=== PATIENT | male | born 1965 | race Caucasian/White ===

== ENCOUNTER 2020-10-21 09:14 | Emergency (ER) | payer OTHER, SELFPAY ==
[2020-10-21 09:18] VITALS: BP 154/91; PULSE 53; RESP 16; TEMP 36.6; O2SAT 98; BMI 23.3
[2020-10-21 09:28] LABS: Bacteria Urine None Seen; WBC Urine None Seen (0-5/HPF)
[2020-10-21 09:39] LABS: Add Manual Diff / Slide Review NO; Basophils Absolute Auto 0 /uL (0-100); Basophils Percent Auto 0.7 % (0-2); Eosinophils Absolute Auto 200 /uL (0-450); Eosinophils Percent Auto 3.5 % (2-4); Hematocrit 44.1 % (41-53); Hemoglobin 15.2 g/dL (13.5-17.5); Lymphocytes Absolute Auto 2000 /uL (1100-4500); Lymphocytes Percent Auto 33.5 % (25-40); Mean Corpuscular HGB Conc 34.5 % (30-36); Monocytes Absolute Auto 600 /uL (0-900); Monocytes Percent Auto 9.4 % (3-14); Neutrophils Absolute Auto 3100 /uL (1500-7000); Neutrophils Percent Auto 52.9 % (50-75); Platelet Count 184 X10^3/uL (150-400); Red Blood Cell Count 5.26 X10^6/uL (4.5-5.9); Red Cell Distribution Width 13.7 % (11.6-14.8); White Blood Cell Count 5.9 X10^3/uL (4.5-11.0)
[2020-10-21 09:55] LABS: Culture Indicated Urine Cult Not Indicated; RBC Urine 10-30/HPF (0-5/HPF)
[2020-10-21 09:56] LABS: Alanine Aminotransferase 20 IU/L (<50); Albumin 4.6 g/dL (3.5-5.0); Albumin Globulin Ratio 1.6 (1.0-2.8); Alkaline Phosphatase 44 U/L (38-126); Aspartate Aminotransferase 21 IU/L (17-59); Bilirubin Total 0.7 mg/dL (0.2-1.3); Blood Urea Nitrogen 17 mg/dL (9-20); Calcium 9.2 mg/dL (8.4-10.2); Carbon Dioxide 27 mmol/L (22-32); Chloride 103 mmol/L (98-107); Estimated Glomerular Filt Rate > 60.0 mL/min (>60); Globulin 2.8 g/dL (1.7-4.1); Glucose 124 mg/dL (70-100); HEMOLYSIS < 15 (0-50); Lipase 63 U/L (23-300); Sodium 137 mmol/L (137-145); Total Protein 7.4 g/dL (6.3-8.2)
--- NOTE | 2020-10-21 09:58 | ED_ITS ---
HPI - General Adult General Chief complaint: Urogenital-Male Stated complaint: thinks he has a kidney stone Time Seen by Provider: 10/21/20 09:20 Source: patient Mode of arrival: Ambulatory Limitations: no limitations History of Present Illness HPI narrative: 55-year-old male who has never had a kidney stone in the past here for evaluation of left-sided flank pain. He states that approximately 1.5 hours prior to arrival here in the emergency department as sudden onset. Not worse with urination. Has not had a bowel movement since symptoms started but did have a normal bowel movement this morning. No rashes. Has not better with palpation or movement. No testicular pain. Has had some nausea but no vomiti ng. Related Data Previous Rx's Medication Instructions Recorded hydrocodone-acetaminophen [[place]] 1 tab PO Q4-6H PRN #10 tab 10/21/20 ondansetron 4 mg PO Q6H PRN #14 tab 10/21/20 Allergies Allergy/AdvReac Type Severity Reaction Status Date / Time No Known Drug Allergies Allergy Verified 10/21/20 09:23 Review of Systems Constitutional Constitutional: Denies fever(s) and Denies headache(s) ENT Ears, Nose, Mouth, and Throat: Denies headache(s) Cardiovascular Cardiovascular: Denies chest pain and Denies dyspnea Respiratory Respiratory: Denies dyspnea Gastrointestinal Gastrointestinal: Denies abdominal pain Musculoskeletal Comments: Left-sided flank pain Integumentary/Breasts Skin/Breast: Denies lesions and Denies rash Neurologic Neurologic: Denies behavioral changes and Denies headache(s) Psychiatric Psychiatric: Denies behavioral changes Hematologic/Lymphatic On Anticoagulants: No Allergic/Immunologic Allergic/Immunologic: Denies urticaria Patient History Medical History Hypothyroid Social History Smoking Status: Unknown if ever smoked Smoking Status: Unknown if ever smoked alcohol intake frequency: holidays/special occasions only Substance Use Type: does not use Exam Initial Vital Signs Initial Vital Signs: Vital Signs Temperature 97.8 F 10/21/20 09:18 Pulse Rate 53 L 10/21/20 09:18 Respiratory Rate 16 10/21/20 09:18 Blood Pressure 154/91 H 10/21/20 09:18 Pulse Oximetry 98 10/21/20 09:18 Const General: cooperative and comfortable Limitations: mental status not altered HENMT Head: normal to inspection and normocephalic Resp Effort & Inspection: normal respiratory effort Cardio Rate: regular rate GI Inspection: non-distended Back/Spine/Pelvis Back: No CVA tenderness Skin Lesions: no lesions Rashes: no rashes Neuro General: patient alert and patient awake Cognition: normal cognition Speech: speech normal Extrem General: capillary refill normal Psych Appearance: grossly normal and well kempt Course Orders Ordered: ED Orders 10/21/20 09:19 Urine Microscopic Stat 10/21/20 09:30 Complete Blood Count AUTO DIFF Stat Comprehensive Metabolic Panel Stat Lipase Stat 10/21/20 10:00 CT kidney ureter bladder (KUB) Stat Discontinued Medications Lidocaine HCl 5.9 ml/ Sodium (Chloride) 55.9 mls @ 335.4 mls/hr IV NOW ONE Stop: 10/21/20 09:53 Last Infusion: 10/21/20 10:18 Dose: 0 mls/hr Documented by: Admin: 10/21/20 10:06 Dose: 335.4 mls/hr Documented by: CHELSEA Ketorolac Tromethamine (Ketorolac 60 Mg/2 Ml Vial) 30 mg IV NOW ONE Stop: 10/21/20 09:53 Last Admin: 10/21/20 10:06 Dose: 30 mg Documented by: CHELSEA Ondansetron HCl (Ondansetron 4 Mg/2 Ml Inj) 4 mg IV NOW ONE Stop: 10/21/20 09:53 Last Admin: 10/21/20 10:06 Dose: 4 mg Documented by: CHELSEA Vital Signs Vital signs: Vital Signs - 8 hr 10/21/20 09:18 Temperature 97.8 F Pulse Rate 53 L Respiratory Rate 16 Blood Pressure 154/91 H Pulse Oximetry 98 Medical Decision Making Lab Data Lab results reviewed: Yes I reviewed the patient's lab results. Result diagrams: 10/21/20 09:30 10/21/20 09:30 Labs: Lab Results 10/21/20 10/21/20 10/21/20 Range/Units 09:19 09:30 09:30 WBC 5.9 (4.5-11.0) X10^3/uL RBC 5.26 (4.5-5.9) X10^6/uL Hgb 15.2 (13.5-17.5) g/dL Hct 44.1 (41-53) % MCV 84.0 (80-100) fL MCH 29.0 (26-34) PG MCHC 34.5 (30-36) % RDW 13.7 (11.6-14.8) % Plt Count 184 (150-400) X10^3/uL Neut % (Auto) 52.9 (50-75) % Lymph % (Auto) 33.5 (25-40) % [place] % (Auto) 9.4 (3-14) % Eos % (Auto) 3.5 (2-4) % Baso % (Auto) 0.7 (0-2) % Neut # (Auto) 3100 (2790-2534) /uL Lymph # (Auto) 2000 (9502-1959) /uL [place] # (Auto) 600 (0-900) /uL Eos # (Auto) 200 (0-450) /uL Baso # (Auto) 0 (0-100) /uL Sodium 137 (137-145) mmol/L Potassium 4.0 (3.4-5.1) mmol/L Chloride 103 (98-107) mmol/L Carbon Dioxide 27 (22-32) mmol/L BUN 17 (9-20) mg/dL Creatinine 1.06 (0.66-1.25) mg/dL Estimated GFR > 60.0 (>60) mL/min BUN/Creatinine Ratio 16.0 (6-22) Glucose 124 H (70-100) mg/dL Calcium 9.2 (8.4-10.2) mg/dL Total Bilirubin 0.7 (0.2-1.3) mg/dL AST 21 (17-59) IU/L ALT 20 (<50) IU/L Alkaline Phosphatase 44 (38-126) U/L Total Protein 7.4 (6.3-8.2) g/dL Albumin 4.6 (3.5-5.0) g/dL Globulin 2.8 (1.7-4.1) g/dL Albumin/Globulin Ratio 1.6 (1.0-2.8) Lipase 63 (23-300) U/L Urine RBC 10-30/hpf H (0-5/HPF) Urine WBC None seen (0-5/HPF) Urine Bacteria None seen (None) Ur Culture Indicated? Cult not indicated Urine Dip Bedside Urine Glucose Negative Bedside Urine Bilirubin - Negative Bedside Urine Ketone - Negative Urine Specific [place] 1.025 Bedside Urine Occult Blood ++ Bedside Urine pH 6.0 Bedside Urine Protein +/- 15 Bedside Urine Urobilinogen - Negative Bedside Urine Nitrite - Negative Bedside Urine Leukocytes - Negative Esterase Point of care testing: Urine Dip Bedside Urine Glucose Negative Bedside Urine Bilirubin - Negative Bedside Urine Ketone - Negative Urine Specific [place] 1.025 Bedside Urine Occult Blood ++ Bedside Urine pH 6.0 Bedside Urine Protein +/- 15 Bedside Urine Urobilinogen - Negative Bedside Urine Nitrite - Negative Bedside Urine Leukocytes - Negative Esterase Imaging Data CT scan - abdomen/pelvis: Radiologist's Impression: [address] [id number] Scan ReportSigned Patient: Javi Stern MMR#: [id number]: 1965Acct:[id number]/Sex: 55 / MDate of Service: 10/21/20Loc: EDAccession Number: [id number] Procedure: CT kidney ureter bladder (KUB) Ordering Provider: Toy Paiz D.O. PROCEDURE: CT KIDNEY URETER BLADDER (KUB) INDICATIONS: Tendon on set left flank pain. Concern for left-sided stone. TECHNIQUE: Noncontrast 5 mm thick sections acquired from the diaphragms to the symphysis. 5 mm thick coronal and sagittal reformats were then performed. For radiation dose reduction, the following was used: automated exposure control, adjustment of mA and/or kV according to patient size. COMPARISON: None. FINDINGS: Image quality: Excellent. Lung bases: There is partially visualized scarring and bronchiectasis within the right lower lobe. Heart size is normal. A small hiatal hernia is present. Urinary system: There is a small obstructing stone in the distal left ureter measuring up to 3 mm with associated mild left hydroureteronephrosis as well as perinephric and periureteral fat stranding. There are 2 additional small nonobstructing left renal stones measuring approximately 2 mm. No right renal stones are right hydronephr osis. Right ureter is nondistended. The urinary bladder is partially distended. No calcified bladder stones. Other solid organs: Noncontrast evaluation of the liver demonstrates no focal hepatic lesions. Gallbladder appears within normal limits without calcified gallstones. Pancreas is normal in contours without peripancreatic fat stranding or fluid collections. Spleen is normal in size. No adrenal nodules. Peritoneum and bowel: Unenhanced bowel loops demonstrate normal wall thickness and caliber. The appendix is normal in appearance. Colonic diverticulosis is present without acute diverticulitis. No free fluid or air. Nodes and vessels: No retroperitoneal or mesenteric adenopathy by size criteria. Aorta and inferior vena cava are normal in caliber. Abdominal wall: No ventral hernias. Pelvis: No free pelvic fluid. There are small bilateral inguinal hernias with herniation of a short short segment of small bowel on the right. There is also partial herniation of a small bowel loop into the base of the left hernia. No associated bowel obstruction or evidence of bowel strangulation. No inguinal adenopathy. Bones: No suspicious bony lesions. No vertebral body compression fractures. IMPRESSION: 1. Small obstructing 3 mm distal left ureteral stone with mild left hydroureteronephrosis. 2. Additional 2 mm obstructing stones within the left kidney. 3. No right hydronephrosis. 4. Colonic diverticulosis without acute diverticulitis. 5. Bilateral inguinal hernias with herniation of small bowel as described. No evidence of bowel obstruction or strangulation. Dictated by: Dillon Nicole M.D. on 10/21/2020 at 9:11 Approved by: Dillon Nicole M.D. on 10/21/2020 at 9:26 MDM Narrative Medical decision making narrative: Kidney function is unremarkable, urinalysis does not show any signs of an infection. Patient reports a complete resolution of symptoms after the IV lidocaine in the Toradol. Has a 3 mm stone on the left. I suspect that this is the cause of his symptoms. Will discharge home with symptom treatment. We did discuss return precautions. He expressed understanding and agreement. Discharge Plan Departure Patient Disposition: Home Clinical Impression: Renal colic on left side Instructions: DI for Kidney Stones Activity Restrictions/Additional Instructions: You do have a 3 mm stone on the left that is working its way out and 2 additional stones in the left kidney. Prescription for medications was electronically transmitted to [facility]. Also recommend you contact the health resource is coordinator here at the hospital at [phone]. Return to the emergency department for any new or worsening symptoms like we discussed Prescriptions: New ondansetron 4 mg tablet,disintegrating 4 mg PO Q6H PRN (Reason: nausea and vomiting) Qty: 14 RF: 0 hydrocodone-acetaminophen [[place]] 5-325 mg tablet 1 tab PO Q4-6H PRN (Reason: pain) Qty: 10 RF: 0
[2020-10-21] MEDS: KETOROLAC 60 MG/2 ML VIAL 30 MG IV (10:06)
[2020-10-21] MEDS: LIDOCAINE 2% 5.9 ML in SODIUM CHLORIDE 0.9% 50 ML 335.4 ML IV (10:06)
[2020-10-21] MEDS: ONDANSETRON 4 MG/2 ML INJ IV (10:06)
[2020-10-21 11:09] VITALS: BP 154/91; PULSE 77; O2SAT 98
== END 2020-10-21 11:10 | disposition home or self-care (01) ==
PROVIDERS: Emergency Provider Emergency Medicine
DX: N23 Unspecified renal colic (principal); R11.0 Nausea; Z87.442 Personal history of urinary calculi
CPT/HCPCS: 36415; 74176; 80053; 81003; 81015; 83690; 85025; 96374; 96375; 99284; J1885; J2405

== ENCOUNTER 2023-01-18 22:25 | Emergency (ER) | payer OTHER, SELFPAY ==
[2023-01-18 22:32] VITALS: BP 180/82; PULSE 55; RESP 18; TEMP 36.6; O2SAT 99; BMI 23.7
--- NOTE | 2023-01-18 22:37 | DI.RAD.S_ITS ---
PROCEDURE: XR CHEST 1V INDICATIONS: chest pain TECHNIQUE: One view of the chest was acquired. COMPARISON: None. FINDINGS: Surgical changes and devices: None. Lungs and pleura: Lungs are clear. No pleural effusions or pneumothorax. Mediastinum: Mediastinal contours appear normal. Heart size is normal. Bones and chest wall: No suspicious bony lesions. Overlying soft tissues appear unremarkable. IMPRESSION: 1. No acute cardiopulmonary disease. Dictated by: Dillon Nicole M.D. on 01/19/2023 at 0:49 Approved by: Dillon Nicole M.D. on 01/19/2023 at 0:49
[2023-01-18 23:06] LABS: Add Manual Diff / Slide Review NO; Basophils Absolute Auto 100 /uL (0-100); Basophils Percent Auto 1.3 % (0-2); Eosinophils Absolute Auto 0 /uL (0-450); Eosinophils Percent Auto 0.4 % (2-4); Hematocrit 42.5 % (41-53); Lymphocytes Absolute Auto 700 /uL (1100-4500); Lymphocytes Percent Auto 6.9 % (25-40); Mean Corpuscular HGB Conc 35.2 % (30-36); Mean Corpuscular Hemoglobin 30.3 PG (26-34); Monocytes Absolute Auto 300 /uL (0-900); Monocytes Percent Auto 3.4 % (3-14); Neutrophils Absolute Auto 8800 /uL (1500-7000); Platelet Count 184 X10^3/uL (150-400); Red Blood Cell Count 4.94 X10^6/uL (4.5-5.9)
[2023-01-18 23:09] LABS: INR 1.2 (0.9-1.3); Prothrombin Time 13.7 SECONDS (10.1-12.7)
[2023-01-18 23:12] LABS: PTT Partial Thromboplastin Tim 32 SECONDS (26-36)
[2023-01-18 23:13] LABS: Alanine Aminotransferase 21 IU/L (<50); Albumin 4.5 g/dL (3.5-5.0); Albumin Globulin Ratio 1.6 (1.0-2.8); Alkaline Phosphatase 41 U/L (38-126); Aspartate Aminotransferase 22 IU/L (17-59); BUN Creatinine Ratio 15.7 (6-22); Bilirubin Total 0.8 mg/dL (0.2-1.3); Blood Urea Nitrogen 17 mg/dL (9-20); Calcium 9.3 mg/dL (8.4-10.2); Carbon Dioxide 30 mmol/L (22-32); Chloride 100 mmol/L (98-107); Creatine Kinase 103 U/L (55-170); Estimated Glomerular Filt Rate > 60 mL/min (>60); Globulin 2.9 g/dL (1.7-4.1); Glucose 141 mg/dL (70-100); HEMOLYSIS < 15 (0-50); Lipase 44 U/L (23-300); Sodium 135 mmol/L (137-145); Total Protein 7.4 g/dL (6.3-8.2)
[2023-01-18 23:25] LABS: Troponin I < 0.012 ng/mL (0.01-0.034)
[2023-01-18 23:31] VITALS: BP 180/79; PULSE 66; O2SAT 95
--- NOTE | 2023-01-18 23:34 | ED_ITS ---
HPI - Chest Pain General Chief Complaint: Chest Pain Stated Complaint: Abdominal pain, vomited x 1 Time Seen by Provider: 01/18/23 23:23 Source: patient Mode of arrival: Ambulatory Limitations: no limitations History of Present Illness HPI narrative: Patient is a 57-year-old male here for evaluation of epigastric abdominal pain. He states that it started earlier this afternoon. He did vomit 1 time which he thought maybe help the symptoms a small amount but it is starting to return. He denies any diarrhea. He has had a bowel movement since the onset of his discomfort in did not change any of his pain. He is also urinated without any change in the pain as well. Denies any fevers. Sent an hernia repair but no other abdominal surgeries. Related Data Home Medications Medication Instructions Recorded Confirmed acetaminophen 325 mg tablet 325 mg PO ONCE PRN fever or pain 10/29/20 05/08/22 (Tylenol) cetirizine 10 mg tablet (Zyrtec) 10 mg PO DAILY PRN 02/10/21 05/08/22 Previous Rx's Medication Instructions Recorded levothyroxine 125 mcg tablet 125 mcg PO DAILY #90 tabs 02/06/22 Allergies Allergy/AdvReac Type Severity Reaction Status Date / Time No Known Drug Allergies Allergy Verified 05/08/22 18:05 Review of Systems Constitutional Constitutional: Reports system reviewed and no additional complaints, except as documented Respiratory Respiratory: Reports system reviewed and no additional complaints, except as documented Gastrointestinal Gastrointestinal: Reports system reviewed and no additional complaints, except as documented Genitourinary Genitourinary: Reports system reviewed and no additional complaints, except as documented Integumentary/Breasts Skin/Breast: Reports system reviewed and no additional complaints, except as documented Hematologic/Lymphatic On Anticoagulants: No Patient History Medical History Acquired hypothyroidism (~2004) Allergies (~1977) Chicken pox (~1966) Essential hypertension Leandro's thyroiditis History of adenomatous polyp of colon History of nephrolithiasis Skin cancer (~2013) Surgical History (Updated 02/03/21 @ 20:33 by Janelle Dash) Anesthesia History of colonoscopy (~2017) Status post herniorrhaphy (~1989) Status post vasectomy (~2000) Family History (Updated 02/03/21 @ 20:36 by Janelle Dash) Mother Hypertension Father Hypertension Hyperlipidemia TIA (transient ischemic attack) Grandfather History of heart disease Grandmother Kidney failure Grandfather Suicide Grandmother Arteriosclerosis Social History Smoking Status: Never smoker Smoking Status: Never smoker alcohol intake frequency: holidays/special occasions only Substance Use Type: does not use Exam Initial Vital Signs Initial Vital Signs: Vital Signs Temperature 97.9 F 01/18/23 22:32 Pulse Rate 55 L 01/18/23 22:32 Respiratory Rate 18 01/18/23 22:32 Blood Pressure 180/82 H 01/18/23 22:32 Pulse Oximetry 99 01/18/23 22:32 Oxygen Delivery Method Room Air 01/18/23 22:32 Const General: cooperative, comfortable and No ill appearing HENMT Head: normal to inspection and normocephalic Resp Effort & Inspection: normal respiratory effort Auscultation: clear to auscultation bilaterally Cardio Rate: regular rate Rhythm: regular rhythm GI Inspection: normal to inspection and non-distended Palpation: soft and No tender Skin General: no rashes or lesions noted Neuro General: patient alert, patient awake and moves all extremities Extrem General: capillary refill normal Course Orders Ordered: ED Orders 01/18/23 22:37 XR chest 1V Stat EKG-12 Lead Stat 01/18/23 22:53 Complete Blood Count AUTO DIFF Stat Comprehensive Metabolic Panel Stat Lipase Stat Magnesium Stat PTT Partial Thromboplastin Chad Stat Prothrombin Time INR Stat Troponin & CK Cardiac Panel Stat Discontinued Medications Al Hydrox/Mg Hydrox/Simethicone (Mag Hydrox/Alum/Simeth 30 Ml Udc) 30 ml PO NOW ONE Stop: 01/18/23 23:52 Last Admin: 01/19/23 00:00 Dose: 30 ml Documented By: TAD Aspirin (Aspirin 81 Mg Chew Tab) 324 mg PO NOW ONE Stop: 01/18/23 22:38 Last Admin: 01/18/23 23:24 Dose: Not Given Documented By: BREANN Pantoprazole Sodium (Pantoprazole 40 Mg Vial) 40 mg IV NOW ONE Stop: 01/18/23 23:52 Last Admin: 01/19/23 00:00 Dose: 40 mg Documented By: TAD Vital Signs Vital signs: Vital Signs - 8 hr 01/18/23 22:32 01/18/23 23:31 01/18/23 23:31 Temperature 97.9 F Pulse Rate 55 L 66 Respiratory Rate 18 Blood Pressure 180/82 H 180/79 H Pulse Oximetry 99 95 Oxygen Delivery Method Room Air Room Air MDM - Chest Pain Lab Data Attestation: I reviewed the patient's lab results. 01/18/23 22:53 01/18/23 22:53 Labs: Lab Results 01/18/23 01/18/23 01/18/23 Range/Units 22:53 22:53 22:53 WBC 10.0 (4.5-11.0) X10^3/uL RBC 4.94 (4.5-5.9) X10^6/uL Hgb 15.0 (13.5-17.5) g/dL Hct 42.5 (41-53) % MCV 86.0 (80-100) fL MCH 30.3 (26-34) PG MCHC 35.2 (30-36) % RDW 13.0 (11.6-14.8) % Plt Count 184 (150-400) X10^3/uL Neut % (Auto) 88.0 H (50-75) % Lymph % (Auto) 6.9 L (25-40) % [place] % (Auto) 3.4 (3-14) % Eos % (Auto) 0.4 L (2-4) % Baso % (Auto) 1.3 (0-2) % Neut # (Auto) 8800 H (3441-4118) /uL Lymph # (Auto) 700 L (8009-3498) /uL [place] # (Auto) 300 (0-900) /uL Eos # (Auto) 0 (0-450) /uL Baso # (Auto) 100 (0-100) /uL PT 13.7 H (10.1-12.7) SECONDS INR 1.2 (0.9-1.3) APTT 32 (26-36) SECONDS Sodium 135 L (137-145) mmol/L Potassium 4.0 (3.4-5.1) mmol/L Chloride 100 (98-107) mmol/L Carbon Dioxide 30 (22-32) mmol/L BUN 17 (9-20) mg/dL Creatinine 1.08 (0.66-1.25) mg/dL Estimated GFR > 60 (>60) mL/min BUN/Creatinine Ratio 15.7 (6-22) Glucose 141 H (70-100) mg/dL Calcium 9.3 (8.4-10.2) mg/dL Magnesium 2.0 (1.6-2.3) mg/dL Total Bilirubin 0.8 (0.2-1.3) mg/dL AST 22 (17-59) IU/L ALT 21 (<50) IU/L Alkaline Phosphatase 41 (38-126) U/L Total Creatine Kinase 103 (55-170) U/L CK-MB (CK-2) TNP CK-MB (CK-2) Rel Index TNP Troponin I < 0.012 (0.01-0.034) ng/mL Total Protein 7.4 (6.3-8.2) g/dL Albumin 4.5 (3.5-5.0) g/dL Globulin 2.9 (1.7-4.1) g/dL Albumin/Globulin Ratio 1.6 (1.0-2.8) Lipase 44 (23-300) U/L Imaging Data Chest x-ray: My Impression: No acute abnormalities noted ECG Data Attestation: I personally reviewed and interpreted this ECG as follows: Interpretation: Sinus bradycardia Ventricular rate of 49 Normal axis Normal QRS Normal QTC No ST T wave changes MDM Narrative Medical decision making narrative: Patient's lab work here in the ER is unremarkable. Troponin is negative EKG is unremarkable. After time and medications he states that his abdominal pain is actually improving. He is not having anymore vomiting. Had a discussion with him regarding his symptoms. We discussed potentially obtaining further imaging studies to include a CT scan for further evaluation versus discharge home and return to the emergency department if his symptoms worsen. Discharge Plan Departure Patient Disposition: Home Clinical Impression: Abdominal pain Instructions: DI for Abdominal Pain-Adult Activity Restrictions/Additional Instructions: I do recommend that you continue to take all of your medications as directed. Contact your primary doctor for a follow-up. Return to the emergency department for new or worsening symptoms. Prescriptions: No Action cetirizine [Zyrtec] 10 mg tablet 10 mg PO DAILY PRN levothyroxine 125 mcg tablet 125 mcg PO DAILY Qty: 90 3RF acetaminophen [Tylenol] 325 mg tablet 325 mg PO ONCE PRN (Reason: fever or pain) Referrals: Flex Trevino MD [Primary Care Provider] - Stand Alone Forms: Patient Portal/API
[2023-01-19] VITALS: BP 168/81; PULSE 46; O2SAT 99
[2023-01-19] MEDS: PANTOPRAZOLE 40 MG VIAL IV
[2023-01-19] MEDS: MAG HYDROX/ALUM/SIMETH 30 ML UDC PO
[2023-01-19 00:30] VITALS: BP 166/78; PULSE 41; RESP 16; O2SAT 98
[2023-01-19 00:56] VITALS: BP 171/76; PULSE 44; RESP 22; O2SAT 98
== END 2023-01-19 01:00 | disposition home or self-care (01) ==
PROVIDERS: Emergency Provider Emergency Medicine; PCP Internal Medicine
DX: R10.13 Epigastric pain (principal); R00.1 Bradycardia, unspecified
CPT/HCPCS: 36415; 71045; 80053; 82550; 82553; 83690; 83735; 84484; 85025; 85610; 85730; 93005; 93010; 96374; 99284; C9113

== ENCOUNTER 2023-09-13 09:17 | Day surgery (SDC) | payer OTHER, SELFPAY ==
[2023-09-13] VITALS (7 sets, daily range): BP systolic 93–163; BP diastolic 64–92; PULSE 53–76; RESP 13–16; TEMP 36.1–36.2; O2SAT 94–98
--- NOTE | 2023-09-13 | PATH_ITS ---
[facility] Accession Number: [id number] No. of containers..02 Tissue . 01 Material submitted: . PART A: cecum - CECAL POLYPS X 2 PART B: colon - TRANSVERSE POLYPS X 2 . 01 Diagnosis: A. Cecal Polyps, Biopsy: Serrated polyp with focal crypt architectural features, consistent with sessile serrated adenomas. . B. Transverse Colon Polyps, Biopsy: Tubular adenoma. Hyperplastic polyp. MRV 09/17/2023 1501 Local . 01 Electronically signed: . Mariaelena Bennett MD, Pathologist NPI- [id number] . 01 Gross description: . Part A: CECAL POLYPS X 2: Received in formalin are 2 fragment(s) of mtz, soft tissue measuring 0.4 x 0.4 x 0.3 cm to 0.5 x 0.3 x 0.2 cm submitted entirely in 1 cassette(s) Part B: TRANSVERSE POLYPS X 2: Received in formalin are 3 fragment(s) of mtz, soft tissue measuring 0.2 x 0.2 x 0.2 cm to 0.7 x 0.6 x 0.6 cm submitted entirely in 1 cassette(s) /COOPER 09/14/2023 2049 Local . 01 Pathologist provided ICD-10: D12.0, D12.3 . 01 CPT . 864055, 942552 Specimen Comment: A courtesy copy of this report has been sent to [phone] Performed at: [facility] [address] [place] [address] [id number] MD Dillon Vidales MD Phone: [phone]
--- NOTE | 2023-09-13 10:50 | P.HP_ITS ---
History of Present Illness History of Present Illness Date Patient Seen: 09/13/23 Time Patient Seen: 10:50 Chief complaint: Colonoscopy Narrative: Javi is a 58-year-old man who had a colonoscopy at [facility] in 2018 with 2 tubular adenomas removed. No family history of colon cancer. Otherwise healthy [facility] Medical History Acquired hypothyroidism (~2004) Allergies (~1977) Chicken pox (~1966) Essential hypertension Leandro's thyroiditis History of adenomatous polyp of colon History of nephrolithiasis Skin cancer (~2013) Surgical History (Updated 02/03/21 @ 20:33 by Janelle Dash) Anesthesia History of colonoscopy (~2017) Status post herniorrhaphy (~1989) Status post vasectomy (~2000) Family History (Updated 02/03/21 @ 20:36 by Janelle Dash) Mother Hypertension Father Hypertension Hyperlipidemia TIA (transient ischemic attack) Grandfather History of heart disease Grandmother Kidney failure Grandfather Suicide Grandmother Arteriosclerosis Social History Smoking Status: Never smoker Meds Home Medications and Allergies Home Medications Medication Instructions Recorded Confirmed Type acetaminophen 325 mg tablet 325 mg PO ONCE PRN fever or pain 10/29/20 02/02/23 History (Tylenol) cetirizine 10 mg tablet (Zyrtec) 10 mg PO DAILY PRN 02/10/21 02/02/23 History levothyroxine 125 mcg tablet 125 mcg PO DAILY #90 tabs 02/02/23 02/02/23 Rx sodium,potassium,mag sulfates 17.5 See Rx Instructions PO .COMPLEX 07/18/23 Rx gram-3.13 gram-1.6 gram oral soln #354 mL (Suprep Bowel Prep Kit) Allergies Allergy/AdvReac Type Severity Reaction Status Date / Time No Known Drug Allergies Allergy Verified 02/02/23 14:52 Exam Const General: healthy appearing and No acute distress Assessment & Plan Assessment and plan (1) History of adenomatous polyp of colon: Problem details: Colonoscopy 2017 Status: Inactive Plan We reviewed the risks and benefits of colonoscopy for history of polyps and he would like to proceed.
[2023-09-13] MEDS: LACTATED RINGERS 1,000 ML 42 ML IV (11:10)
--- NOTE | 2023-09-13 11:59 | PM.OP.COLON ---
Operative Date/Time/Diagnoses Date of procedure: 09/13/23 Time of procedure: 11:59 Pre-op diagnosis: History of polyps Post-op diagnosis: same Procedure & Clinicians Study performed: Colonoscopy Same procedure as scheduled: Yes Surgeon: Bin Fan Procedure Notes Procedure in detail: Surgeon: Bin Fan MD Anesthesia: Octavio Knox MD Procedure: The patient was brought to the endoscopy suite, placed in left lateral decubitus position. The patient was connected to monitoring devices. A time-out was performed. Sedation was administered. Once the patient was adequately sedated, a digital rectal exam was performed and was normal. The scope was then inserted and advanced to the cecum where the appendiceal orifice was identified and photographed. The scope was then slowly withdrawn over greater than 6 minutes. The mucosa was thoroughly inspected. There were 2 polyps in the cecum, each about 5 mm, both removed with cold snare and sent together. There were 2 polyps in the transverse colon, 1 was about 8 mm and the other about 5 mm. They were both removed with a cold snare. They were sent together. The scope was retroflexed in the rectum. Internal hemorrhoids were seen. The scope was straightened and removed. The patient was awakened and brought to recovery. Scope withdrawal time: 12 minutes Sedation time: 16 minutes EBL: 5 mL Findings: 4 polyps as described above, all less than 1 cm Post-procedure Disposition: PACU
== END 2023-09-13 12:46 | disposition home or self-care (01) ==
PROVIDERS: PCP Internal Medicine; Referring Provider Surgery; Visit Provider Surgery
PROC: 0DJD8ZZ Inspection of Lower Intestinal Tract, Via Natural or Artificial Opening Endoscopic (ICD-10-PCS; CPT 45378; principal; 2023-09-13 10:30)
DX: Z12.11 Encounter for screening for malignant neoplasm of colon (principal); Z86.010 Personal history of colon polyps; K64.8 Other hemorrhoids; D12.0 Benign neoplasm of cecum; D12.3 Benign neoplasm of transverse colon
CPT/HCPCS: 45385; J2704